=== PATIENT | female | born 1975 | race Caucasian/White ===

== ENCOUNTER 2022-07-14 12:35 | Emergency (ER) | payer OTHER, SELFPAY ==
[2022-07-14 12:43] VITALS: BP 114/73; PULSE 68; RESP 15; TEMP 36.8; O2SAT 97; BMI 32.1
[2022-07-14 12:50] VITALS: BP 106/65; PULSE 72; RESP 18; TEMP 36.9; O2SAT 98; BMI 31.1
--- NOTE | 2022-07-14 13:31 | EXP.UTC ---
Discharge Plan Disposition Patient Disposition: Home, Self-Care Condition: Good Prescriptions Prescriptions: New duloxetine 60 mg capsule,delayed release(DR/EC) 60 mg PO DAILY Qty: 90 0RF Referrals Follow up/Referrals: Provider,Referral, [Primary Care Provider] - See instructions Noemi Anthony APRN [Nurse Practitioner] - See instructions Activity Restrictions/Add. Instructions Additional Instructions/Restrictions: Call [facility] Primary Care to get established with PCP Clinical Impressions Clinical Impression: Chronic back pain Instructions Patient Instructions: DI for Chronic Pain -- Adult Discharge ED Provider: [facility] General Stated complaint: Back pain No known accident Mode of Arrival: Ambulatory Source of Information: Patient Limitations: No Limitations Time Seen by Provider: 07/14/22 13:31 Description of Symptoms (Recalled from Triage Doc. by RN): PATIENT C/O CHRONIC BACK PAIN. SHE STATES SHE RAN OUT OF HER MEDICINE IN JANUARY AND HASN'T BEEN ABLE TO GET INTO A DOCTOR SINCE TO GET IT REFILLED HEENT Symptoms (Recalled from RN notes): No Resp Symptoms (Recalled from RN notes): No Skin Symptoms (Recalled from RN notes): No MS Symptoms (Recalled from RN notes): Yes Functional Status (Recalled from RN notes): WNL History of Present Illness Provider Complaint: Patient presents with chronic back pain. She has had chronic back pain for many years and was on Gabapentin and Duloxetine. She moved here from [place] before [place]. Has not been able to find a doctor in [place] that is taking new patients. Onset (ago): year(s) Location: back Radiation: non-radiation Severity: moderate Associated symptoms: denies other symptoms Related Data Previous Rx's Medication Instructions Recorded duloxetine 60 mg capsule,delayed 60 mg PO DAILY #90 caps 07/14/22 release Allergies Allergy/AdvReac Type Severity Reaction Status Date / Time hydrocodone Allergy Verified 07/14/22 13:11 Worker's Comp Is this a Worker's Comp case?: No [facility] Disclaimer: The information contained in this section may have been updated after the patient was seen, as this information can be updated by other users. Social History Smoking Status: Unknown if ever smoked alcohol intake: never current occupational status: disabled Travel in the last 8 weeks: None ROS Obtained: Yes All systems reviewed & no additional complaints except as documented Musculoskeletal Musculoskeletal: Reports back pain Physical Exam General General appearance: alert and in no apparent distress Head Head exam: atraumatic, normocephalic and normal inspection Chest Chest inspection: Present normal inspection and symmetric chest wall rise; Absent tenderness Respiratory Respiratory exam: Present normal lung sounds bilaterally; Absent respiratory distress Cardiovascular Cardiovascular exam: Present regular rate and normal rhythm; Absent JVD Extremities Exam Extremities exam: Present normal inspection, full ROM and normal capillary refill; Absent calf tenderness Back Exam Back exam: Present normal inspection and tenderness Neurological Exam Neurological exam: Present alert and oriented X3 Psychiatric Psychiatric exam: Present normal affect and normal mood Skin Skin exam: Present warm, dry, intact and normal color Lymphatic Lymphatic Findings: no adenopathy Medical Decision Making Derian Inquiry Pt receiving controlled substance: No Vital Signs: 07/14/22 12:43 07/14/22 12:50 Temperature 98.3 F 98.4 F Temperature Source Oral Oral Pulse Rate [Left] 68 72 Respiratory Rate 15 18 Blood Pressure [Right Arm] 114/73 106/65 L Blood Pressure Mean [Right Arm] 86 78 Blood Pressure Source [Right Arm] Automatic Cuff Blood Pressure Position [Right Arm] Sitting 02 Sat by Pulse Oximetry 97 98 Oxygen Delivery Method Room Air
[2022-07-14 13:40] VITALS: BP 106/65; PULSE 72; RESP 18; TEMP 36.9; O2SAT 98
== END 2022-07-14 13:52 | disposition home or self-care (01) ==
PROVIDERS: Emergency Provider Physician Assistant
DX: M54.9 Dorsalgia, unspecified (principal); G89.29 Other chronic pain
CPT/HCPCS: 99204; 99212; G0463

== ENCOUNTER → 2022-07-17 14:22 | Outpatient (CLI) | payer OTHER, SELFPAY ==
[2022-07-17 14:21] LABS: Basophils % 0.4 % (0.1-2.0); Eosinophils # 0.1 K/mm3 (0.0-0.4); Eosinophils % 1.3 % (0.1-12.0); Hematocrit 48.2 % (37.0-47.0); Hemoglobin 15.3 g/dL (12.2-16.2); Lymphocytes # 3.9 K/mm3 (0.7-4.5); Lymphocytes % 34.9 % (10-50); Mean Corpuscular HGB Conc 31.7 g/dL (31.8-35.4); Mean Corpuscular Volume 88.4 fl (81-99); Mean Platelet Volume 9.9 fl (7.4-10.4); Monocytes # 0.4 K/mm3 (0.1-1.0); Monocytes % 3.5 % (1.7-9.3); Neutrophils # 6.6 K/mm3 (1.8-7.8); Neutrophils % 59.9 % (37.0-80.0); Platelet Count 296 K/mm3 (142-424); Red Blood Count 5.45 M/mm3 (4.20-5.40); Red Cell Distribution Width 14.9 % (11.5-17.5); White Blood Count 11.1 K/mm3 (4.8-10.8)
[2022-07-17 14:29] LABS: Alanine Aminotransferase 18 U/L (12-78); Albumin Level 4.8 g/dl (3.5-5.0); Albumin/Globulin Ratio 1.5 (1.1-1.8); Alkaline Phosphatase 126 U/L (38-126); Anion Gap 15.1 mEq/L (5-15); Aspartate Amino Transferase 26 U/L (14-36); Bilirubin,Total 0.5 mg/dl (0.2-1.3); Blood Urea Nitrogen 11 mg/dl (7-17); Calcium 9.8 mg/dl (8.4-10.2); Carbon Dioxide 27 mmol/L (22.0-30.0); Chloride 103 mmol/L (98-107); Chol/HDL Ratio 3.9 (1-3.5); Cholesterol 230 mg/dl (140-200); Estimated Glomerular Filt Rate 107 ml/min (>60); GFR (African American) 130 ML/MIN (>60); Globulin 3.2 g/dL (1.3-3.2); Glucose 83 mg/dl (74-100); HDL Cholesterol 59 mg/dl (40-60); Potassium 4.1 mmoL/L (3.5-5.1); Sodium 141 mmol/L (136-145); Triglycerides 236 mg/dl (30-150); VLDL Cholesterol 47 mg/dL (0-40)
[2022-07-17 14:41] LABS: Direct LDL Cholesterol 118.29 mg/dL (100-129)
[2022-07-17 14:46] LABS: 25-OH Vitamin D, Total 34.2 ng/mL (30-100)
[2022-07-17 15:01] LABS: Thyroid Stimulating Hormone 6.16 uIU/mL (0.465-4.68)
[2022-07-17 17:26] LABS: Free Thyroxine Index 2.4 ug/dL (5.93-13.13); Triiodothryronine (T3) Uptake 27 % (23.5-40.5)
[2022-07-17 17:39] LABS: Thyroid Stimulating Hormone 6.11 uIU/mL (0.465-4.68)
== END ==
PROVIDERS: PCP Nurse Practitioner Family; Visit Provider Nurse Practitioner Family
DX: Z00.00 Encounter for general adult medical examination without abnormal findings (principal); I10 Essential (primary) hypertension; M54.50 Low back pain, unspecified; E66.9 Obesity, unspecified; Z68.30 Body mass index [BMI] 30.0-30.9, adult; Z72.0 Tobacco use
CPT/HCPCS: 80053; 80061; 82306; 84436; 84443; 84479; 85025

== ENCOUNTER 2023-11-22 20:30 | Outpatient (CLI) | payer OTHER, SELFPAY ==
[2023-11-22 21:33] LABS: Basophils # 0.1 K/mm3 (0-0.2); Basophils % 0.6 % (0.1-2.0); Eosinophils # 0.2 K/mm3 (0.0-0.4); Eosinophils % 1.9 % (0.1-12.0); Hematocrit 44.4 % (37.0-47.0); Hemoglobin 13.9 g/dL (12.2-16.2); Lymphocytes # 3.1 K/mm3 (0.7-4.5); Lymphocytes % 32.9 % (10-50); Mean Corpuscular HGB Conc 31.3 g/dL (31.8-35.4); Mean Corpuscular Hemoglobin 28.7 pg (27.0-31.2); Mean Corpuscular Volume 91.8 fl (81-99); Mean Platelet Volume 10.6 fl (7.4-10.4); Monocytes # 0.4 K/mm3 (0.1-1.0); Monocytes % 3.7 % (1.7-9.3); Neutrophils # 5.8 K/mm3 (1.8-7.8); Neutrophils % 60.9 % (37.0-80.0); Platelet Count 248 K/mm3 (142-424); Red Blood Count 4.84 M/mm3 (4.20-5.40); Red Cell Distribution Width 15.6 % (11.5-17.5); White Blood Count 9.5 K/mm3 (4.8-10.8)
[2023-11-22 22:06] LABS: Alanine Aminotransferase 17 U/L (12-78); Aspartate Amino Transferase 24 U/L (14-36); Bilirubin,Total 0.5 mg/dl (0.2-1.3); Blood Urea Nitrogen 21 mg/dl (7-17); Calcium 9.4 mg/dl (8.4-10.2); Carbon Dioxide 26 mmol/L (22.0-30.0); Chloride 108 mmol/L (98-107); Estimated Glomerular Filt Rate 77 ml/min (>60); GFR (African American) 93 ML/MIN (>60); Glucose 68 mg/dl (74-100); Sodium 141 mmol/L (136-145); Total Protein,Serum 7.1 g/dl (6.3-8.2)
[2023-11-22 22:07] LABS: Albumin Level 4.6 g/dl (3.5-5.0); Albumin/Globulin Ratio 1.8 (1.1-1.8); Alkaline Phosphatase 95 U/L (38-126); Chol/HDL Ratio 3.5 (1-3.5); Cholesterol 235 mg/dl (140-200); Direct LDL Cholesterol 127.67 mg/dL (100-129); Globulin 2.5 g/dL (1.3-3.2); HDL Cholesterol 68 mg/dl (40-60); Triglycerides 86 mg/dl (30-150); VLDL Cholesterol 17 mg/dL (0-40)
[2023-11-22 22:29] LABS: Hemoglobin A1C 5.5 % (4.0-6.0)
[2023-11-22 23:11] LABS: 25-OH Vitamin D, Total 27 ng/mL (30-100)
[2023-11-22 23:15] LABS: Thyroid Stimulating Hormone 4.18 uIU/mL (0.465-4.68)
[2023-11-22 23:34] LABS: Vitamin B12 286 pg/mL (239-931)
[2023-11-23 10:49] LABS: HIV (1&2) Antibody Rapid NONREACTIVE (NONREACTIVE)
[2023-11-24 08:18] LABS: HCV Ab Non Reactive (Non Reactive)
== END 2023-11-22 23:59 | disposition home or self-care (01) ==
LOC: LAB.DROPOF 20:34
PROVIDERS: PCP Family Medicine; Visit Provider Family Medicine
DX: E03.9 Hypothyroidism, unspecified (principal); R53.83 Other fatigue; B34.9 Viral infection, unspecified
CPT/HCPCS: 86703; 80050; 80053; 80061; 82306; 82607; 83036; 84443; 85025; 87522

== ENCOUNTER 2024-01-24 09:35 | Outpatient (CLI) | payer OTHER, SELFPAY ==
--- NOTE | 2024-01-24 09:38 | XR_ITS ---
PROCEDURE INFORMATION: Exam: XR Lumbosacral Spine Exam date and time: 01/24/2024 9:41 AM Age: 48 years old Clinical indication: Low back pain; Prior surgery; Surgery date: 6+ months; Surgery type: PT unknown of exact surgery TECHNIQUE: Imaging protocol: Radiologic exam of the lumbosacral spine. Views: 2 or 3 views. AP Lateral and Coned down lateral COMPARISON: CR XR HIP LT 2-3V W/PELVIS 01/24/2024 9:41 AM FINDINGS: Tubes, catheters and devices: Surgical clips overlie the right abdomen. Bones/joints: Intervertebral discectomy hardware and vertebral body fusion identified within lumbosacral spine region. Grade 2 anterior spondylolisthesis is demonstrated within the lumbar sacral junction. The spondylolisthesis measures 18 mm. Questionable spondylolysis at the L5 level. Bilateral lumbar sacral transitional vertebra is demonstrated. Severe degenerative disc disease within the lumbosacral junction. Severe facet degenerative changes posteriorly within the lower lumbar spine and lumbosacral junction between L3-S1 levels. Moderate to severe degenerative changes are demonstrated within the bilateral sacroiliac joints. Otherwise, mild degenerative changes. Soft tissues: Unremarkable. Lungs: Visualized aspects of the chest appear grossly unremarkable. Vasculature: Calcifications in the pelvis, most compatible with phleboliths. Notes: If there is further concern or neurological abnormalities on clinical exam, CT or MRI of the lumbar spine may be performed for complete assessment. IMPRESSION: 1. Grade 2 anterior spondylolisthesis at L5-S1 level with severe degenerative changes. Questionable spondylolysis. 2. Severe degenerative changes identified in the lower lumbar spine and lumbosacral junction. Consider MRI imaging. 3. Bilateral transitional lumbosacral vertebra.
--- NOTE | 2024-01-24 09:38 | XR_ITS ---
PROCEDURE INFORMATION: Exam: XR Left Hip Exam date and time: 01/24/2024 9:41 AM Age: 48 years old Clinical indication: Hip pain; Bilateral TECHNIQUE: Imaging protocol: Radiologic exam of the left hip. Views: 2 or 3 views hip with pelvis when performed. AP 1 view pelvis with 2 views hip COMPARISON: CR XR LUMBAR SPINE 2-3V 01/24/2024 9:41 AM FINDINGS: Bones/joints: Postsurgical and severe degenerative changes identified in the lower lumbar spine and lumbosacral junction. Refer to lumbar spine radiographs report. Moderate to severe degenerative changes are demonstrated within the bilateral sacroiliac joints. No visualized evidence for acute bony fracture or dislocation. Otherwise, mild degenerative changes within the bilateral pelvis. The visualized sacral arches appear intact. Soft tissues: Unremarkable. Vasculature: Calcifications in the pelvis, most compatible with phleboliths. Notes: If there is further concern, recommend follow-up radiographs or MRI for complete assessment. IMPRESSION: 1. No acute bony abnormality identified. 2. Degenerative and postsurgical changes are demonstrated, as described above.
--- NOTE | 2024-01-24 09:38 | XR_ITS ---
PROCEDURE INFORMATION: Exam: XR Thoracic Spine Exam date and time: 01/24/2024 9:41 AM Age: 48 years old Clinical indication: Pain in thoracic spine; Additional info: Back pain TECHNIQUE: Imaging protocol: Radiologic exam of the thoracic spine. Views: 3 views. AP Lateral Swimmer's COMPARISON: CR XR THORACIC SPINE 3V 01/24/2024 9:41 AM FINDINGS: Tubes, catheters and devices: Surgical clips overlie the right abdomen. Bones/joints: Twelve thoracic vertebra identified with bilateral paired ribs. Normal alignment of the vertebra without dislocation or spondylolisthesis. Mild generalized bony degenerative changes. Bony structures appear otherwise unremarkable. No visualized evidence for acute bony fracture or dislocation. Soft tissues: Unremarkable. Lungs: Visualized aspects of the chest appear grossly unremarkable. Notes: If there is further concern or neurological abnormalities on clinical exam, recommend CT or MRI of the thoracic spine for complete assessment. IMPRESSION: No acute bony abnormality identified.
--- NOTE | 2024-01-24 09:38 | XR_ITS ---
PROCEDURE INFORMATION: Exam: XR Cervical Spine Exam date and time: 01/24/2024 9:41 AM Age: 48 years old Clinical indication: Neck pain; Additional info: Back pain TECHNIQUE: Imaging protocol: Radiologic exam of the cervical spine. Views: 2 or 3 views. AP Lateral Odontoid 3 views COMPARISON: CR XR THORACIC SPINE 3V 01/24/2024 9:41 AM FINDINGS: Tubes, catheters and devices: None. Bones/joints: Normal alignment of the vertebra without dislocation or spondylolisthesis. Mild generalized bony degenerative changes. Bony structures appear otherwise unremarkable. No visualized evidence for acute bony fracture or dislocation. Bilateral C7 cervical ribs are demonstrated. Soft tissues: Unremarkable. Lungs: Visualized aspects of the chest appear grossly unremarkable. Notes: If there is further concern or neurological abnormalities on clinical exam, MRI or CT of the cervical spine may be performed for complete assessment. IMPRESSION: 1. No acute bony abnormality identified. 2. Chronic appearing degenerative changes, as described above.
--- NOTE | 2024-01-24 09:38 | XR_ITS ---
PROCEDURE INFORMATION: Exam: XR Right Hip Exam date and time: 01/24/2024 9:41 AM Age: 48 years old Clinical indication: Hip pain; Bilateral TECHNIQUE: Imaging protocol: Radiologic exam of the right hip. Views: 2 or 3 views hip with pelvis when performed. AP 1 view pelvis with 2 views hip COMPARISON: CR XR LUMBAR SPINE 2-3V 01/24/2024 9:41 AM FINDINGS: Bones/joints: Postsurgical and severe degenerative changes identified in the lower lumbar spine and lumbosacral junction. Refer to lumbar spine radiographs report. Moderate to severe degenerative changes are demonstrated within the bilateral sacroiliac joints. No visualized evidence for acute bony fracture or dislocation. Otherwise, mild degenerative changes in the bilateral pelvis. The visualized sacral arches appear intact. Soft tissues: Unremarkable. Vasculature: Calcifications in the pelvis, most compatible with phleboliths. Notes: If there is further concern, recommend follow-up radiographs or MRI for complete assessment. IMPRESSION: 1. No acute bony abnormality identified. 2. Degenerative and postsurgical changes are demonstrated, as described above.
== END 2024-01-24 23:59 | disposition home or self-care (01) ==
LOC: RAD 09:36
PROVIDERS: PCP Family Medicine; Visit Provider Family Medicine
DX: M54.2 Cervicalgia (principal); M54.50 Low back pain, unspecified; M25.551 Pain in right hip; M25.552 Pain in left hip; G89.29 Other chronic pain; M54.9 Dorsalgia, unspecified
CPT/HCPCS: 72040; 72072; 72100; 73502

== ENCOUNTER 2024-01-31 17:00 | Outpatient (RCR) | payer OTHER, SELFPAY ==
--- NOTE | 2024-01-29 18:14 | HMH.PTOPEV ---
PT Outpatient Evaluation Rehab PT Outpatient Evaluation Start: 01/29/24 15:59 Freq: Status: Active Protocol: Document 01/29/24 16:00 CARRILLO (Rec: 01/29/24 18:14 CARRILLO [id number]) E-signed By Sammie Ac, PT Outpatient Therapy Subjective History Subjective History Pt is a 48 y/o female who reports chronic LBP since she was in her 20s. Pt reports history of lumbar fusion in 2018 with revision due to hardware malalignment in 2019. Pt reports surgical intervention improved intensity of pain slightly; however, she has suffered constant central low back since. Pt reports current symptoms of central low back pain that refers into bilateral posterolateral hips. Pt reports pain is worse when she is sedentary and improves slightly with activity. Pt denies b/b dysfunction or radicular symptoms. Pt reports she does notice that bilateral legs go numb with prolonged sitting and improves with walking. Pt states intermittent leg weakness when walking, denies falls due to this or required use of an AD. Pt reports she was given a back brace from her surgeon she was told to wear as needed which she states she does. Pt denies taking medication for pain but does state she takes Gabapentin for neuropathy. Pt had a lumbar spine radiograph on 01/24/24 with impression of 1. Grade 2 anterior spondylolisthesis at L5-S1 level with severe degenerative changes. Questionable spondylolysis. 2.Severe degenerative changes identified in the lower lumbar spine and lumbosacral junction. Consider MRI imaging . 3. Bilateral transitional lumbosacral vertebra. Lumbar radiograph also shows intervertebral discectomy hardware and vertebral body fusion identified within lumbosacral spine region. Pt also had bilateral hip and thoracic spine xrays on 01/23 without significant findings. Occupation: part-time at [employer] Medical History: Neuropathy, Asthma, Osteoporosis, Osteoarthrits, Anxiety, Depression, Venous insufficiency Core strength: 4-/5 New diagnosis of cancer in past 12 No months? Chief Complaint Pain,Stiff Symptom Type Throb,Sharp,Dull,Numbness, Shooting Symptoms Relieved By Nothing Symptoms Aggravated By Supine,Sitting,Standing, Bending/Stooping,Physical Activity,Twisting,Walking, Lifting Current Functional Limitations Lifting,Housework,Sleeping, Standing,Sitting,Squatting, Walking,Bending/Stooping Symptom Description Constant but Variable Level of pain today (0-10) 7 Pain scale - at its best (0-10) 7 Pain scale - at its worst (0-10) 10 Lumbopelvic Eval Posture Lumbar Spine Posture Standing Position Increased Lordosis Assistive device Assistive Devices None / NA Palapation tenderness bilateral paraspinal tenderness Yes buttock tenderness Yes: piriformis, gluteal mm Lumbar/Sacral Palpation Findings Tenderness Lumbar/Sacral Palpation Overall Comment 2/4 TTP Range of Motion Lumbar Spine Active Flexion Range of 70 Motion (degrees) Lumbar Spine Active Extension Range of 4 Motion (degrees) Left Lumbar Spine Lateral Flexion Active 8 Range of Motion (degrees) Right Lumbar Spine Lateral Flexion 10 Active Range of Motion (degrees) Manual Muscle Test Bilateral Knee Extension Strength Grade 5 Normal Knee Flexion Strength Grade 4 Good Hip Flexion Strength Grade 4 Good Hip Abduction Strength Grade 4 Good Hip Adduction Strength Grade 4 Good Hip Extension Strength Grade 4 Good Ankle Dorsiflexion Strength Grade 5 Normal DTR Rt Patellar 1+ Lt Patellar 2+ Altered Sensation Bilateral LE Dermatome Level L3 Comment decreased light touch R compared to L Special Tests Hip Blas (LISA) Test Positive Left,Positive Right Sciatic Nerve Tension Test Negative Left,Negative Right Unilateral Straight Leg Raise (Lasegue) Negative Left,Negative Right Test Oswestry Index Section 1 Pain Intensity The pain is severe and does not vary much Section 2 Personal Care (Washing,Dresing) increase the pain and I find it necessary to change my way of doing it Section 3 Lifting I can only lift very light weights at most Section 4 Walking I cannot walk at all without increasing pain Section 5 Sitting Pain prevents me from sitting for more than 1/2 hour Section 6 Standing I cannot stand more than 1/2 hour without increasing pain Section 7 Sleeping Because of my pain, my normal night's sleep is less than 4 hours Section 8 Social Life Pain has restricted my social life and I do not go out often Section 9 Traveling I get extra pain while traveling which compels me to seek alternate fo Section 10 Changing Degreee of Pain My pain is neither getting better or worse Score and Risk Level Oswestry Sc 36 Oswestry Risk Level Completely Disabled Outpatient Therapy Assessment Impairments Problems/Impairmments Palpation Tenderness,Impaired Range of Motion,Impaired Strength,Impaired Walking, Impaired Standing,Impaired Sitting,Impaired Lifting, Impaired Household Care, Impaired Squatting,Impaired Bending,Impaired Work Activities,Subjective C/O Pain ,Impaired Self Care/Self Management Prognosis Rehab Potential Good Clinical Impression Consistent with Diagnosis Yes Short Term Goals Number of Weeks 3 Improve Oswestry Score Yes: Improve GOKUL score to 31 or less to improve overall QOL Improve Self Care/Self Management Yes Patient to be Ind w/ HEP Yes Senior Care Goals Number of Weeks 6 Increase Range of Motion Yes: Improve lumbar AROM flexion to 80 to improve overall QOL Increase Strength Yes: Improve hip/core strength to 4-4+/5 grossly to assist with function Improve Oswestry Score Yes: Improve score to <30 to improve overall QOL Decrease Subjective C/O Pain Yes: Improve pain at worst to 6-8/10 to improve overall QOL Outpatient Therapy Plan of Care Treatment Plan May Include Therapeutic Exercise Including Home Yes Exercise Program Manual Therapy Techniques Yes Neuromuscular Re-education Yes Therapeutic Activities to Return to Yes Previous Functional/Work Level ADL/Self Care Education Yes Dry Needling Yes Thermal Modalities Yes Electrical Stimulation Yes Ultrasound/Phonophoresis Yes Iontophoresis Yes Massage Yes Eval/Re-Eval Yes Frequency Times per week 2 Duration Number of Weeks 4-6 Addendums This patient is a candidate for social No or vocational rehab? Patient/Guardian verbally acknowledges Yes understanding of treatment program and consents to further treatment? Patient/Guardian verbally acknowledges Yes understanding of diagnosis, prognosis and goals for treatment? Eval Complexity PT Charges 52667 - Low Complexity Shoulder/Elbow Eval Shoulder Objective Measurements Elbow Objective Measurements PHYSICIAN CERTIFICATION: I certify the specified therapy services for Raquel Temple are required, authorized, and reviewed every 30 days.
== END 2024-01-31 23:59 | disposition home or self-care (01) ==
LOC: PT 17:00
PROVIDERS: Visit Provider Family Medicine
DX: G89.29 Other chronic pain (principal); M54.9 Dorsalgia, unspecified; M25.551 Pain in right hip; M25.552 Pain in left hip
CPT/HCPCS: 97014; 97110; 97163; G0283

== ENCOUNTER 2024-02-14 14:43 | Outpatient (CLI) | payer OTHER, SELFPAY ==
--- NOTE | 2024-02-14 14:44 | MR_ITS ---
FINAL REPORT CLINICAL HISTORY: back pain x many years 16 ml prohance COMPARISON: None FINDINGS: Multiplanar MR imaging of the lumbar spine was performed without and with contrast. On the sagittal T2-weighted images, advanced degenerative disc disease is present at the L5-S1 level. There is grade 1-2 spondylolisthesis of L5 on S1 and prominent endplate reactive changes. There is no evidence of fracture. The conus is seen at approximately the L1 level and has an unremarkable appearance. L1-2: No significant canal stenosis or neuroforaminal narrowing is seen. L2-3: No significant canal stenosis or neuroforaminal narrowing is seen. L3-4: No significant canal stenosis or neuroforaminal narrowing is seen. L4-5: A mild annular bulge is present. There is bilateral facet hypertrophy and mild bilateral neural foraminal narrowing. L5-S1: A diffuse annular bulge is present. There is endplate hypertrophy and severe bilateral neural foraminal narrowing. There is a prominent area of abnormal signal adjacent to the posterior elements of L5, measuring 5.4 x 2.2 cm in size. Postinfusion images reveal mild peripheral enhancement, with the central component somewhat heterogeneous with increased signal on T2 weighted images. This focus of abnormal signal it does not produce any mass effect on the thecal sac. The overall appearance is suggestive of a complex seroma or hematoma. IMPRESSION: L5-S1 grade 1-2 spondylolisthesis of L5 on S1, with endplate hypertrophy, severe bilateral neural foraminal narrowing. There is an abnormal signal focus posterior to the L5 level as described above, that does not produce mass effect upon the thecal sac. The overall appearance suggests a complex seroma or hematoma, with a CSF leak postop felt less likely. Reviewed, Interpreted and Dictated by Werner Mendez MD Transcribed by Alice Savage Authenticated and [facility]
[2024-02-14] MEDS: SODIUM CHLORIDE 0.9% 10ML SYR (RAD ONLY) 10 ML IV (15:34)
[2024-02-14] MEDS: GADOTERIDOL INJ 20ML SYRINGE 16 ML IV (15:35)
== END 2024-02-14 23:59 | disposition home or self-care (01) ==
LOC: RAD 14:44
PROVIDERS: PCP Family Medicine; Visit Provider Family Medicine
DX: M54.9 Dorsalgia, unspecified (principal); M46.90 Unspecified inflammatory spondylopathy, site unspecified
CPT/HCPCS: 72158; A9576